=== PATIENT | female | born 1970 | race Caucasian/White ===

== ENCOUNTER 2018-06-13 11:13 | Emergency (ER) | payer BC ==
[~2018-06-13] VITALS: Ht 160 cm; Wt 49.9 kg
[2018-06-13 11:20] VITALS: Ht 160 cm; Wt 49.9 kg
[2018-06-13 11:38] LABS: BASOPHILS 0.3 % (0-2); EOSINOPHILS 2.9 % (0-7); HEMATOCRIT 38.9 % (36.0-48.0); HEMOGLOBIN 13.1 g/dL (12-16); LYMPHOCYTES 48.8 % (15-50); MCH 31.2 pg (26.0-34.0); MCHC 33.7 g/dL (31.0-37.0); MCV 92.6 fL (80.0-100.0); MEAN PLATELET VOLUME 11.8 fL (7.4-10.4); MONOCYTES 9.1 % (2-11); NEUTROPHILS 38.9 % (40-80); RDW 14.4 % (11.5-14.5); WBC 3.9 10x3/uL (4.8-10.8)
[2018-06-13 11:39] LABS: PLATELET COUNT 179 10x3/uL (130-400)
[2018-06-13 11:47] LABS: HCG SERUM NEGATIVE (NEGATIVE)
[2018-06-13 11:51] LABS: ALKALINE PHOSPHATASE 56 U/L (46-116); ALT (SGPT) 47 U/L (10-68); BILIRUBIN - TOTAL 0.53 mg/dL (0.2-1.3); CALC OSMOLALITY 280 mosm/kg (275-300); CALCIUM 9.1 mg/dL (8.5-10.1); CARBON DIOXIDE 30.9 mmol/L (21.0-32.0); CHLORIDE - SERUM 103 mmol/L (98-107); CREATININE - SERUM 0.8 mg/dL (0.6-1.3); GLUCOSE 96 mg/dL (74-106); LIPASE 438 U/L (73-393); SODIUM 141 mmol/L (136-145); UREA NITROGEN 12 mg/dL (7-18); eGFR NON AFRICAN AMERICAN 82 mL/min (90-120)
[2018-06-13 12:27] LABS: APPEARANCE CLEAR (CLEAR); BILIRUBIN NEGATIVE (NEGATIVE); COLOR YELLOW (YELLOW); GLUCOSE NEGATIVE (NEGATIVE); KETONE NEGATIVE (NEGATIVE); NITRITE NEGATIVE (NEGATIVE); PROTEIN NEGATIVE (NEGATIVE); UROBILINOGEN NORMAL (NORMAL)
[2018-06-13 12:28] LABS: BACTERIA FEW /hpf (NONE SEEN); EPITHELIAL CELLS 0-5 /hpf (0-5); WHITE CELLS - URINE 0-5 /hpf (0-5)
[2018-06-13] MEDS ORDERED: VIBRAMYCIN 100100 MG PO (13:55)
[2018-06-13] MEDS ORDERED: VOLTAREN75 MG PO (13:55)
[2018-06-13 14:13] VITALS: BP 119/80
[2018-06-16 21:08] LABS: HIV-1 RNA BY PCR <20 (())
[2018-06-16 21:08] LABS: CHLAMYDIA TRACHOMATIS, NAA Negative (Negative)
== END 2018-06-13 14:14 | disposition home or self-care (01) ==
LOC: D.ER 11:13
PROVIDERS: Emergency Medicine
DX: N73.9 Female pelvic inflammatory disease, unspecified (principal); R10.2 Pelvic and perineal pain